=== PATIENT | male | born 1980 | race Caucasian/White ===

== ENCOUNTER 2017-03-05 18:08 | Emergency (ER) | payer SELFPAY ==
--- NOTE | 2017-03-05 19:12 | ER Document Report ---
ED Medical Screen (RME) - General TRAVEL OUTSIDE OF THE [place] IN LAST 30 DAYS: No <JUSTIN SCHAFFER - Last Filed: 03/05/17 19:09> <JANIA RICKETTS - Last Filed: 03/05/17 20:33> - General Chief Complaint: Shortness Of Breath Stated Complaint: SHORTNESS OF BREATH Time Seen by Provider: 03/05/17 19:02 Notes: Patient says he has been having difficulty with his breathing for about a month. He took some Mucinex cough medication and after couple weeks that problem cleared up. Then, it came back a couple of weeks ago. He had a cough and when he coughs it feels like phlegm breaks loose and then he feels like he is losing his breath. He has been producing yellow phlegm initially followed by just clear phlegm now. I had any fever. Has a history of asthma but does not feel he is having asthma attacks. Patient does not smoke. Patient says he has had some intermittent ankle swelling bilaterally, but it has preceded his current illness. Denies any leg pain or history of blood clots. 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 Has acid reflux. (JUSTIN SCHAFFER) - Related Data Allergies/Adverse Reactions: No Known Allergies Allergy (Verified 03/05/17 18:18) Past Medical History Renal/ Medical History: Denies: Hx Peritoneal Dialysis GI Medical History: Reports: Hx Gastroesophageal Reflux Disease Musculoskeltal Medical History: Reports Hx Musculoskeletal Trauma Traumatic Medical History: Reports: Hx Fractures Past Surgical History: Reports: Hx Orthopedic Surgery - Immunizations Immunizations up to date: Yes Hx Diphtheria, Pertussis, Tetanus Vaccination: Yes <JUSTIN SCHAFFER - Last Filed: 03/05/17 19:09> Course - Laboratory Result Diagrams: 03/05/17 19:30 03/05/17 19:30 <JANIA RICKETTS - Last Filed: 03/05/17 20:33> - Vital Signs Vital signs: Temp Pulse Resp BP Pulse Ox 97.6 F 95 14 153/95 H 96 03/05/17 18:18 03/05/17 18:18 03/05/17 18:18 03/05/17 18:18 03/05/17 18:18 - Laboratory Laboratory results interpreted by me: 03/05/17 19:30 WBC 10.8 H Doctor's Discharge <JUSTIN SCHAFFER - Last Filed: 03/05/17 19:09> <JANIA RICKETTS - Last Filed: 03/05/17 20:33> - Discharge Clinical Impression: Cough, Shortness of breath, Postnasal drip Condition: Stable Disposition: HOME, SELF-CARE Additional Instructions: No pneumonia is seen on x-ray. Examination is consistent with an upper respiratory source of your symptoms along with postnasal drip. Because of ongoing symptoms we are treating you with a course of azithromycin in addition to the prednisone for suspected bronchitis source. Also consider antiallergy such as Zyrtec or Erin [id number] for postnasal drip and your symptoms. Follow-up with primary care. Return to emergency department for concerning or worsening symptoms including rapid or labored breathing, worsening shortness of breath, spiking fever, chest pain, or any other concerning symptoms. Prescriptions: Azithromycin [Zithromax 250 mg Tablet] 250 mg PO ASDIR PRN #6 tablet PRN Reason: Prednisone [Deltasone 10 mg Tablet] 10 mg PO ASDIR PRN #21 tablet PRN Reason:
[2017-03-05 19:52] LABS: ABSOLUTE EOSINOPHILS # (AUTO) 0.2 10^3/uL (0.0-0.6); ABSOLUTE LYMPHOCYTES (AUTO) 3.5 10^3/uL (0.5-4.7); ABSOLUTE MONOCYTES (AUTO) 0.7 10^3/uL (0.1-1.4); ABSOLUTE NEUT (AUTO) 6.4 10^3/uL (1.7-8.2); BASOPHILS % (AUTO) 0.4 % (0-2); EOSINOPHILS % (AUTO) 2.2 % (0-6); HEMATOCRIT 41.4 % (37.9-51.0); HEMOGLOBIN 13.8 g/dL (13.5-17.0); MEAN CORPUSCULAR HEMOGLOBIN 30.2 pg (27.0-33.4); MEAN CORPUSCULAR HGB CONC 33.2 g/dL (32.0-36.0); MEAN CORPUSCULAR VOLUME 91 fl (80-97); RED BLOOD COUNT 4.56 10^6/uL (4.35-5.55); RED CELL DISTRIBUTION WIDTH 13.4 % (11.5-14.0); SEGMENTED NEUTROPHILS % (AUTO) 59.4 % (42-78); WHITE BLOOD COUNT 10.8 10^3/uL (4.0-10.5)
[2017-03-05 20:00] LABS: ALANINE AMINOTRANSFERASE 64 U/L (21-72); ALBUMIN 4.2 g/dL (3.5-5.0); ALKALINE PHOSPHATASE 66 U/L (38-126); ANION GAP 15 (5-19); ASPARTATE AMINO TRANSFERASE 30 U/L (17-59); BILIRUBIN,DIRECT 0.3 mg/dL (0.0-0.4); BILIRUBIN,TOTAL 0.4 mg/dL (0.2-1.3); BLOOD UREA NITROGEN 11 mg/dL (7-20); CALCIUM 9.8 mg/dL (8.4-10.2); CARBON DIOXIDE 25 mmol/L (22-30); CHLORIDE 103 mmol/L (98-107); CREATININE RESULT 0.82 mg/dL (0.52-1.25); GLUCOSE 92 mg/dL (75-110); POTASSIUM 4.6 mmol/L (3.6-5.0); SODIUM 142.5 mmol/L (137-145); TOTAL PROTEIN 7.2 g/dL (6.3-8.2)
--- NOTE | 2017-03-05 20:04 | RADIOLOGY REPORT (SQ) ---
EXAM DESCRIPTION: CHEST PA/LAT COMPLETED DATE/TIME: 03/05/2017 7:42 pm REASON FOR STUDY: Cough and feeling short of breath. COMPARISON: None. NUMBER OF VIEWS: Two view. TECHNIQUE: Frontal and lateral radiographic views of the chest acquired. LIMITATIONS: None. FINDINGS: LUNGS AND PLEURA: Low lung volumes. No opacities, masses or pneumothorax. No pleural eff usion. MEDIASTINUM AND HILAR STRUCTURES: No masses. No contour abnormalities. HEART AND VASCULAR STRUCTURES: Heart normal in size and contour. No evidence for failure. BONES: No acute findings. HARDWARE: None in the chest. OTHER: No other significant finding. IMPRESSION: LOW LUNG VOLUMES. NO SIGNIFICANT RADIOGRAPHIC FINDING IN THE CHEST. TECHNICAL DOCUMENTATION: JOB ID: [id number] [employer]- All Rights Reserved
[2017-03-05] MEDS ORDERED: PREDNISONE 20 MG TABLET PO ONE (20:29)
[2017-03-05 20:43] VITALS: BP 145/93
--- NOTE | 2017-03-06 05:51 | ER Document Report ---
ED General - General Chief Complaint: Shortness Of Breath Stated Complaint: SHORTNESS OF BREATH Time Seen by Provider: 03/05/17 19:02 Notes: Patient is a 36-year-old male who comes emergency department for chief complaint of difficulty breathing, symptoms started almost 1 month ago, he states that he then improved but then 2 weeks ago his symptoms returned. He states he has coughing episodes and today during the coughing episodes he felt more short of breath than usual. He denies any fever, he states he had yellow phlegm but now he is just coughing up clear phlegm. He does not smoke. He states he has a history of asthma in the past. He states that he has noticed his legs swelling on both sides, however this started before his cough and shortness of breath. He denies any history or family history of blood clots. He denies any recent surgery or long distance travel. 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 TRAVEL OUTSIDE OF THE [place] IN LAST 30 DAYS: No - Related Data Allergies/Adverse Reactions: No Known Allergies Allergy (Verified 03/05/17 18:18) Past Medical History - General Information source: Patient - Social History Smoking Status: Never Smoker Frequency of alcohol use: Occasional Drug Abuse: None Family History: Arthritis, CAD, DM, Hyperlipidemia, Hypertension, Malignancy, Thyroid Disfunction Patient has suicidal ideation: No Patient has homicidal ideation: No Pulmonary Medical History: Reports: Hx Asthma Renal/ Medical History: Denies: Hx Peritoneal Dialysis GI Medical History: Reports: Hx Gastroesophageal Reflux Disease Musculoskeltal Medical History: Reports Hx Musculoskeletal Trauma Traumatic Medical History: Reports: Hx Fractures Past Surgical History: Reports: Hx Orthopedic Surgery - Immunizations Immunizations up to date: Yes Hx Diphtheria, Pertussis, Tetanus Vaccination: Yes Review of Systems - Review of Systems Constitutional: No symptoms reported EENT: No symptoms reported Cardiovascular: See HPI Respiratory: See HPI Gastrointestinal: No symptoms reported Genitourinary: No symptoms reported Male Genitourinary: No symptoms reported Musculoskeletal: No symptoms reported Skin: No symptoms reported Hematologic/Lymphatic: No symptoms reported Neurological/Psychological: No symptoms reported Physical Exam - Vital signs Vitals: Temp Pulse Resp BP Pulse Ox 97.6 F 95 14 153/95 H 96 03/05/17 18:18 03/05/17 18:18 03/05/17 18:18 03/05/17 18:18 03/05/17 18:18 Interpretation: Normal - General General appearance: Appears well In distress: None - Patient does not appear to be in any distress - HEENT Head: Normocephalic, Atraumatic Eyes: Normal Conjunctiva: Normal Extraocular movements intact: Yes Eyelashes: Normal Pupils: PERRL Tympanic membrane: Normal Sinus: Normal Nasal: Normal Mouth/Lips: Normal Mucous membranes: Normal Pharynx: Erythema - There is mild erythema with what appears to be postnasal drip Neck: Normal - Respiratory Respiratory status: No respiratory distress. No: Respiratory distress, Tachypnea Chest status: Nontender. No: Tender Breath sounds: Nonproductive cough. No: Decreased air movement, Wheezing Chest palpation: Normal - Cardiovascular Rhythm: Regular. No: Tachycardia Heart sounds: Normal auscultation, S1 appreciated, S2 appreciated Murmur: No - Abdominal Inspection: Normal Distension: No distension Bowel sounds: Normal Tenderness: Nontender Organomegaly: No organomegaly - Back Back: Normal, Nontender - Extremities General upper extremity: Normal inspection, Nontender, Normal color, Normal ROM , Normal temperature General lower extremity: Normal inspection, Nontender, Normal color, Normal ROM , Normal temperature, Normal weight bearing. No: Rita's sign - Neurological Neuro grossly intact: Yes Cognition: Normal Orientation: AAOx4 Campbell Coma Scale Eye Opening: Spontaneous Howe Coma Scale Verbal: Oriented Campbell Coma Scale Motor: Obeys Commands Campbell Coma Scale Total: 15 Speech: Normal Motor strength normal: LUE, RUE, LLE, RLE Sensory: Normal - Psychological Associated symptoms: Normal affect, Normal mood - Skin Skin Temperature: Warm Skin Moisture: Dry Skin Color: Normal Course - Re-evaluation Re-evalutation: Laboratory workup is unremarkable, patient's physical exam shows evidence of postnasal drip and some irritated coughing but no other concerning abnormalities. No lower extremity swelling. Very low suspicion of PE based on no long distance travel, no smoking, no lower extremity swelling, no history of blood clot with patient for family members, and no surgery. Patient not currently reporting any shortness of breath. Because symptoms have been going on greater than 1 week I did agree to cover with antibiotic although discussed with patient that this is very likely bronchitis. Discussed follow-up with primary care, discussed return precautions, patient states understanding and agreement. - Vital Signs Vital signs: Temp Pulse Resp BP Pulse Ox 98.0 F 85 18 145/93 H 97 03/05/17 20:42 03/05/17 20:42 03/05/17 20:42 03/05/17 20:42 03/05/17 20:42 - Laboratory Result Diagrams: 03/05/17 19:30 03/05/17 19:30 Laboratory results interpreted by me: 03/05/17 19:30 WBC 10.8 H Discharge - Discharge Clinical Impression: Cough, Shortness of breath, Postnasal drip Condition: Stable Disposition: HOME, SELF-CARE Additional Instructions: No pneumonia is seen on x-ray. Examination is consistent with an upper respiratory source of your symptoms along with postnasal drip. Because of ongoing symptoms we are treating you with a course of azithromycin in addition to the prednisone for suspected bronchitis source. Also consider antiallergy such as Zyrtec or Erin [id number] for postnasal drip and your symptoms. Follow-up with primary care. Return to emergency department for concerning or worsening symptoms including rapid or labored breathing, worsening shortness of breath, spiking fever, chest pain, or any other concerning symptoms. Prescriptions: Azithromycin [Zithromax 250 mg Tablet] 250 mg PO ASDIR PRN #6 tablet PRN Reason: Prednisone [Deltasone 10 mg Tablet] 10 mg PO ASDIR PRN #21 tablet PRN Reason: Forms: Elevated Blood Pressure
== END 2017-03-05 21:20 | disposition home or self-care (01) ==
LOC: ER 18:08
DX: J45.909 Unspecified asthma, uncomplicated (principal); R09.82 Postnasal drip; R05 Cough; R06.02 Shortness of breath
CPT/HCPCS: 36415; 71020; 80053; 85025; 87070; 87205; 99284

== ENCOUNTER 2017-03-06 12:00 | Emergency (ER) | payer SELFPAY ==
--- NOTE | 2017-03-06 12:43 | ER Document Report ---
ED Respiratory Problem - General Chief Complaint: Shortness Of Breath Stated Complaint: DIFFICULTY BREATHING Time Seen by Provider: 03/06/17 12:15 Mode of Arrival: Ambulatory Information source: Patient TRAVEL OUTSIDE OF THE [place] IN LAST 30 DAYS: No - HPI Patient complains to provider of: Cough, Short of breath Onset: Other - 1 month Quality of pain: No pain Severity: Mild Short of Breath: Mild Chest pain/discomfort: Tightness, Worse with deep breaths Cough: Productive Sputum amount: Small Sputum color: Clear Sputum consistency: Mucoid Associated symptoms: Congestion, Cough, Short of breath Similar symptoms previously: Yes Recently seen / treated by doctor: Yes Notes: Patient is a 36-year-old male who presents back to the emergency room today for complaints of shortness of breath with chest tightness and a cough that has been persistent for 1 month, the cough is occasionally productive of clear phlegm, there is been no fever, no injury, he does report the back of his throat feels dry and he has had nasal congestion as well, he was seen in this emergency room yesterday for these complaints, was diagnosed with likely bronchitis and started on antibiotics which she has been unable to fill yet as he was discharged late yesterday evening and the pharmacies were closed, he reports feeling no change in symptoms since being seen last night, patient reports that at some point in time during his evaluation the possibility of a pulmonary embolus was discussed with him and now he is concerned that that could be a possibility for his symptoms, he is not a smoker 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 but does get out of the vehicle once he arrives at his destination, denies any leg pain or calf pain, no history of DVTs previously or PE - Related Data Allergies/Adverse Reactions: No Known Allergies Allergy (Verified 03/06/17 12:01) Past Medical History - General Information source: Patient - Social History Smoking Status: Never Smoker Family History: Arthritis, CAD, DM, Hyperlipidemia, Hypertension, Malignancy, Thyroid Disfunction Patient has suicidal ideation: No Patient has homicidal ideation: No Pulmonary Medical History: Reports: Hx Asthma Renal/ Medical History: Denies: Hx Peritoneal Dialysis GI Medical History: Reports: Hx Gastroesophageal Reflux Disease Musculoskeltal Medical History: Reports Hx Musculoskeletal Trauma Traumatic Medical History: Reports: Hx Fractures Past Surgical History: Reports: Hx Orthopedic Surgery - Immunizations Immunizations up to date: Yes Hx Diphtheria, Pertussis, Tetanus Vaccination: Yes Review of Systems - Review of Systems Constitutional: No symptoms reported EENT: No symptoms reported Cardiovascular: No symptoms reported Respiratory: See HPI Gastrointestinal: No symptoms reported Genitourinary: No symptoms reported Male Genitourinary: No symptoms reported Musculoskeletal: No symptoms reported Skin: No symptoms reported Hematologic/Lymphatic: No symptoms reported Neurological/Psychological: No symptoms reported -: Yes All other systems reviewed and negative Physical Exam - Vital signs Vitals: Temp Pulse Resp BP Pulse Ox 98.7 F 91 20 161/104 H 98 03/06/17 12:03/06/17 12:03/06/17 12:03/06/17 12:03/06/17 12:01 Interpretation: Normal - General General appearance: Appears well, Alert - HEENT Head: Normocephalic, Atraumatic Eyes: Normal Pupils: PERRL - Respiratory Respiratory status: No respiratory distress. No: Respiratory distress Chest status: Nontender Breath sounds: Normal. No: Decreased air movement Chest palpation: Normal - Cardiovascular Rhythm: Regular Heart sounds: Normal auscultation Murmur: No - Abdominal Inspection: Normal, Morbidly Obese Distension: No distension Bowel sounds: Normal Tenderness: Nontender Organomegaly: No organomegaly - Back Back: Normal, Nontender - Extremities General upper extremity: Normal inspection, Nontender, Normal color, Normal ROM , Normal temperature General lower extremity: Normal inspection, Nontender, Normal color, Normal ROM , Normal temperature, Normal weight bearing. No: Rita's sign Calf: Nontender - Neurological Neuro grossly intact: Yes Cognition: Normal Orientation: AAOx4 Campbell Coma Scale Eye Opening: Spontaneous Campbell Coma Scale Verbal: Oriented Dingess Coma Scale Motor: Obeys Commands Dingess Coma Scale Total: 15 Speech: Normal Motor strength normal: LUE, RUE, LLE, RLE Sensory: Normal - Psychological Associated symptoms: Normal affect, Normal mood - Skin Skin Temperature: Warm Skin Moisture: Dry Skin Color: Normal Course - Vital Signs Vital signs: Temp Pulse Resp BP Pulse Ox 98.7 F 91 20 161/104 H 98 03/06/17 12:01 03/06/17 12:03/06/17 12:03/06/17 12:03/06/17 12:01 - EKG Interpretation by Wy EKG shows normal: Sinus rhythm Rate: Normal Rhythm: NSR Discharge - Discharge Clinical Impression: Bronchitis Condition: Stable Disposition: HOME, SELF-CARE Instructions: Bronchitis ([facility]) Additional Instructions: Follow up with your primary care provider in one to 2 days. Return to the emergency room immediately if symptoms worsen or any additional concerns. Forms: Return to Work
[2017-03-06 14:05] VITALS: BP 157/94
--- NOTE | 2017-03-07 00:16 | EKG REPORT ---
SEVERITY:- NORMAL ECG - SINUS RHYTHM : Confirmed by: Lyndon Baker 07-Mar-2017 00:15:25
== END 2017-03-06 13:36 | disposition home or self-care (01) ==
LOC: ER 12:00
DX: J40 Bronchitis, not specified as acute or chronic (principal); R07.89 Other chest pain; R09.81 Nasal congestion; Z82.49 Family history of ischemic heart disease and other diseases of the circulatory system
CPT/HCPCS: 36415; 85379; 93005; 93010; 99285

== ENCOUNTER 2017-10-10 14:55 | Emergency (ER) | payer SELFPAY ==
--- NOTE | 2017-10-10 16:43 | ER Document Report ---
ED Medical Screen (RME) - General Chief Complaint: Abdominal Pain Stated Complaint: LOWER ABDOMINAL PAIN Time Seen by Provider: 10/10/17 16:40 Mode of Arrival: Ambulatory Information source: Patient Notes: 37 yo morbidly obese male with RLQ abd. pain that gets worse with bm's today, and after 2 sandwichs at lunch. Onset 0400. No hx stones. No fever. No groin or testiculat pain. TRAVEL OUTSIDE OF THE [place] IN LAST 30 DAYS: No - Related Data Allergies/Adverse Reactions: No Known Allergies Allergy (Verified 10/10/17 14:56) Past Medical History - Social History Chew tobacco use (# tins/day): No Frequency of alcohol use: Occasional Drug Abuse: None Pulmonary Medical History: Reports: Hx Asthma Renal/ Medical History: Denies: Hx Peritoneal Dialysis GI Medical History: Reports: Hx Gastroesophageal Reflux Disease Musculoskeltal Medical History: Reports Hx Musculoskeletal Trauma Traumatic Medical History: Reports: Hx Fractures Past Surgical History: Reports: Hx Orthopedic Surgery - Immunizations Immunizations up to date: Yes Hx Diphtheria, Pertussis, Tetanus Vaccination: Yes Physical Exam - Vital signs Vitals: Temp Pulse Resp BP Pulse Ox 98.5 F 101 H 18 185/97 H 97 10/10/17 15:05 10/10/17 15:05 10/10/17 15:05 10/10/17 15:05 10/10/17 15:05 Course - Vital Signs Vital signs: Temp Pulse Resp BP Pulse Ox 98.5 F 101 H 18 185/97 H 97 10/10/17 15:05 10/10/17 15:05 10/10/17 15:05 10/10/17 15:05 10/10/17 15:05
[2017-10-10 17:18] LABS: ABSOLUTE EOSINOPHILS # (AUTO) 0.2 10^3/uL (0.0-0.6); ABSOLUTE LYMPHOCYTES (AUTO) 3.2 10^3/uL (0.5-4.7); ABSOLUTE MONOCYTES (AUTO) 0.8 10^3/uL (0.1-1.4); ABSOLUTE NEUT (AUTO) 7.6 10^3/uL (1.7-8.2); BASOPHILS % (AUTO) 0.4 % (0-2); EOSINOPHILS % (AUTO) 1.3 % (0-6); HEMATOCRIT 42.4 % (37.9-51.0); HEMOGLOBIN 14.7 g/dL (13.5-17.0); LYMPHOCYTES % (AUTO) 27.4 % (13-45); MEAN CORPUSCULAR HEMOGLOBIN 30.7 pg (27.0-33.4); MEAN CORPUSCULAR HGB CONC 34.7 g/dL (32.0-36.0); MEAN CORPUSCULAR VOLUME 89 fl (80-97); MONOCYTES % (AUTO) 6.4 % (3-13); PLATELET COUNT 392 10^3/uL (150-450); RED BLOOD COUNT 4.79 10^6/uL (4.35-5.55); RED CELL DISTRIBUTION WIDTH 13.5 % (11.5-14.0); SEGMENTED NEUTROPHILS % (AUTO) 64.5 % (42-78); TOTAL CELLS COUNTED % (AUTO) 100 %; WHITE BLOOD COUNT 11.8 10^3/uL (4.0-10.5)
[2017-10-10 17:28] LABS: APPEARANCE,URINE CLEAR; BILIRUBIN,URINE NEGATIVE (NEGATIVE); COLOR,URINE YELLOW; GLUCOSE, URINE NEGATIVE (NEGATIVE); KETONES,URINE NEGATIVE (NEGATIVE); LEUKOCYTE ESTERASE,URINE NEGATIVE (NEGATIVE); NITRITE,URINE NEGATIVE (NEGATIVE); PROTEIN,URINE NEGATIVE (NEGATIVE); URINE SPECIFIC GRAVITY 1.025; UROBILINOGEN,URINE NEGATIVE mg/dL (<2.0)
[2017-10-10 17:42] LABS: ALANINE AMINOTRANSFERASE 70 U/L (21-72); ALBUMIN 4.8 g/dL (3.5-5.0); ALKALINE PHOSPHATASE 70 U/L (38-126); ANION GAP 13 (5-19); ASPARTATE AMINO TRANSFERASE 37 U/L (17-59); BILIRUBIN,DIRECT 0.3 mg/dL (0.0-0.4); BILIRUBIN,TOTAL 0.5 mg/dL (0.2-1.3); BLOOD UREA NITROGEN 14 mg/dL (7-20); CALCIUM 10.1 mg/dL (8.4-10.2); CARBON DIOXIDE 25 mmol/L (22-30); CHLORIDE 104 mmol/L (98-107); GLUCOSE 82 mg/dL (75-110); LIPASE 95.1 U/L (23-300); POTASSIUM 4.3 mmol/L (3.6-5.0); SODIUM 141.8 mmol/L (137-145); TOTAL PROTEIN 7.4 g/dL (6.3-8.2)
--- NOTE | 2017-10-10 19:06 | RADIOLOGY REPORT (SQ) ---
EXAM DESCRIPTION: CT ABD/PELVIS WITH IV ONLY COMPLETED DATE/TIME: 10/10/2017 6:43 pm REASON FOR STUDY: rlq abd pain COMPARISON: None. TECHNIQUE: CT scan of the abdomen and pelvis performed using helical scanning technique with dynamic intravenous contrast injection. No oral contrast. Images reviewed with lung, soft tissue, and bone windows. Reconstructed coronal and sagittal MPR images reviewed. Delayed images for evaluation of the urinary system also acquired. All images stored on PACS. All CT scanners at this facility use dose modulation, iterative reconstruction, and/or weight based d osing when appropriate to reduce radiation dose to as low as reasonably achievable (ALARA). [facility]: Dose Right [facility]: CareDose [facility]: Dose Right [facility]: Teradose 4D [facility]: [email or web address] CONTRAST TYPE AND DOSE: contrast/concentration: Isovue 370.00 mg/ml; Total Contrast Delivered: 100.0 ml; Total Saline Delivered: 45.1 ml RENAL FUNCTION: None required. The patient is less than 50 years old. RADIATION DOSE: CT Rad equipment meets quality standard of care and radiation dose reduction techniq ues were employed. CTDIvol: 30.0 mGy. DLP: 3723 mGy-cm.. LIMITATIONS: None. FINDINGS: LOWER CHEST: No significant findings. No nodules or infiltrates. LIVER: Normal size. No masses. No dilated ducts. There is fatty infiltration of the liver. SPLEEN: Normal size. No focal lesions. PANCREAS: No masses. No significant calcifications. No adjacent inflammation or peripancreatic fluid collections. Pancreatic duct not dilated. GALLBLADDER: No identified stones by CT criteria. No inflammatory changes to suggest cholecystitis. ADRENAL GLANDS: No significant masses or asymmetry. RIGHT KIDNEY AND URETER: No solid masses. No significant calcifications. No hydronephrosis or hyd roureter. LEFT KIDNEY AND URETER: No solid masses. No significant calcifications. No hydronephrosis or hydr oureter. AORTA AND VESSELS: No aneurysm. No dissection. Renal arteries, SMA, celiac without stenosis. RETROPERITONEUM: No retroperitoneal adenopathy, hemorrhage or masses. BOWEL AND PERITONEAL CAVITY: No masses or inflammatory changes. No free fluid or peritoneal masses. APPENDIX: Normal. PELVIS: No mass. No free fluid. Normal bladder. ABDOMINAL WALL: No masses. No hernias. BONES: No significant or acute findings. OTHER: No other significant finding. IMPRESSION: NO SIGNIFICANT OR ACUTE FINDING IN THE ABDOMEN OR PELVIS ON CT SCAN WITH IV CONTRAST. TECHNICAL DOCUMENTATION: JOB ID: [id number] Quality ID # [id number]: Final reports with documentation of one or more dose reduction techniques (e.g., Au tomated exposure control, adjustment of the mA and/or kV according to patient size, use of iterative reconstruction technique) 2010 [employer]- All Rights Reserved
[2017-10-10 19:10] VITALS: BP 151/54
--- NOTE | 2017-10-10 19:41 | ER Document Report ---
ED GI/ - General Chief Complaint: Abdominal Pain Stated Complaint: LOWER ABDOMINAL PAIN Time Seen by Provider: 10/10/17 16:40 Mode of Arrival: Ambulatory Notes: Patient is a 37-year-old male comes emergency department for chief complaint of lower abdominal pain mainly in his right side. He states that he is having an intermittent cramping feelings since this morning, he had occasional sharp stabbing pain in the area. He states he had pain and pressure in the area when he had a couple bowel movements earlier. He denies any current pain. Denies nausea vomiting, fever or chills, hematuria, flank pain, or trauma. Past medical history of obesity, GERD, orthopedic surgery. TRAVEL OUTSIDE OF THE [place] IN LAST 30 DAYS: No - Related Data Allergies/Adverse Reactions: No Known Allergies Allergy (Verified 10/10/17 14:56) Past Medical History - General Information source: Patient - Social History Smoking Status: Never Smoker Chew tobacco use (# tins/day): No Frequency of alcohol use: Occasional Drug Abuse: None Lives with: Family Family History: Arthritis, CAD, DM, Hyperlipidemia, Hypertension, Malignancy, Thyroid Disfunction Patient has suicidal ideation: No Patient has homicidal ideation: No Pulmonary Medical History: Reports: Hx Asthma Renal/ Medical History: Denies: Hx Peritoneal Dialysis GI Medical History: Reports: Hx Gastroesophageal Reflux Disease Musculoskeltal Medical History: Reports Hx Musculoskeletal Trauma Traumatic Medical History: Reports: Hx Fractures Past Surgical History: Reports: Hx Orthopedic Surgery - Immunizations Immunizations up to date: Yes Hx Diphtheria, Pertussis, Tetanus Vaccination: Yes Review of Systems - Review of Systems Constitutional: No symptoms reported EENT: No symptoms reported Cardiovascular: No symptoms reported Respiratory: No symptoms reported Gastrointestinal: See HPI Genitourinary: No symptoms reported Male Genitourinary: No symptoms reported Musculoskeletal: No symptoms reported Skin: No symptoms reported Hematologic/Lymphatic: No symptoms reported Neurological/Psychological: No symptoms reported Physical Exam - Vital signs Vitals: Temp Pulse Resp BP Pulse Ox 98.5 F 101 H 18 185/97 H 97 10/10/17 15:05 10/10/17 15:05 10/10/17 15:05 10/10/17 15:05 10/10/17 15:05 Interpretation: Normal - General General appearance: Appears well, Alert In distress: None - Patient alert, well-appearing, conversational - HEENT Head: Normocephalic, Atraumatic Eyes: Normal Pupils: PERRL - Respiratory Respiratory status: No respiratory distress Chest status: Nontender Breath sounds: Normal Chest palpation: Normal - Cardiovascular Rhythm: Regular Heart sounds: Normal auscultation Murmur: No - Abdominal Inspection: Normal Distension: No distension Bowel sounds: Normal Tenderness: Nontender - Completely nontender abdomen, soft, no rebound tenderness, no rigidity. No: Tender, McBurney's point, Guarding - Back Back: Normal, Nontender. No: Tender, CVA tenderness - Extremities General upper extremity: Normal inspection, Nontender, Normal color, Normal ROM , Normal temperature General lower extremity: Normal inspection, Nontender, Normal color, Normal ROM , Normal temperature, Normal weight bearing. No: Rita's sign - Neurological Neuro grossly intact: Yes Cognition: Normal Orientation: AAOx4 [place] Coma Scale Eye Opening: Spontaneous [place] Coma Scale Verbal: Oriented [place] Coma Scale Motor: Obeys Commands [place] Coma Scale Total: 15 Speech: Normal Motor strength normal: LUE, RUE, LLE, RLE Sensory: Normal - Psychological Associated symptoms: Normal affect, Normal mood - Skin Skin Temperature: Warm Skin Moisture: Dry Skin Color: Normal Course - Re-evaluation Re-evalutation: Patient is alert and well-appearing on my exam. He has a soft nontender abdomen. CBC shows minimal leukocytosis with no elevation of neutrophils or bandemia. Nonspecific. Chemistry unremarkable. Urinalysis unremarkable with no hematuria or infection. CAT scan had already been ordered and performed from triage, this was reviewed. Shows fatty infiltration of the liver, normal appendix, normal bowel, no acute abnormality. I feel this is consistent with patient's examination. Symptoms have been intermittent, no vomiting, no fever, patient currently asymptomatic and has a very unremarkable abdominal exam. I have very low suspicion of an acute abdominal surgical abnormality. Unsure of patient's exact etiology at this time. Discussed results including fatty liver. Patient will be discharged with strict return precautions, I discussed these, these were provided with his discharge instructions, patient states understanding and agreement. - Vital Signs Vital signs: Temp Pulse Resp BP Pulse Ox 98.0 F 89 19 151/54 H 94 10/10/17 19:09 10/10/17 19:09 10/10/17 19:09 10/10/17 19:09 10/10/17 19:09 - Laboratory Result Diagrams: 10/10/17 16:53 10/10/17 16:53 Laboratory results interpreted by me: 10/10/17 16:53 WBC 11.8 H Discharge - Discharge Clinical Impression: Right lower quadrant pain Condition: Stable Disposition: HOME, SELF-CARE Additional Instructions: Your examination, lab work, and CAT scan did not show any concerning abnormality at this time. Increase fluids, eat plenty of fiber, follow-up with primary care. Return to the ED if you worsen, see additional instructions below. Observation for Appendicitis At this time, the abdominal pain does not seem to be appendicitis. Our next "test" will be passage of time. If you have early appendicitis, signs will appear to help us make the diagnosis. Most of the time, the pain goes away. Unless the pain is gone, you should come back for a recheck. This is usually done in 8 to 12 hours. Be sure you understand your follow-up instructions. Come back immediately if: (1) the pain becomes much more severe and sharply increases with movement or coughing, (2) vomiting becomes frequent, (3) there is blood in the vomit, urine, or bowel movements, (4) there are shaking chills or fever, or (5) the abdomen becomes more distended or swollen.
== END 2017-10-10 20:11 | disposition home or self-care (01) ==
LOC: ER 14:55
DX: R10.31 Right lower quadrant pain (principal)
CPT/HCPCS: 36415; 74177; 80053; 81001; 83690; 85025; 99284

== ENCOUNTER 2017-12-06 20:48 | Emergency (ER) | payer SELFPAY ==
[2017-12-06] MEDS ORDERED: PREDNISONE 20 MG TABLET PO ONE (22:04)
--- NOTE | 2017-12-06 22:14 | ER Document Report ---
ED Skin Rash/Insect Bite/Abscs - General Chief Complaint: Skin Problem Stated Complaint: SKIN PROBLEM Time Seen by Provider: 12/06/17 21:06 Information source: Patient TRAVEL OUTSIDE OF THE [place] IN LAST 30 DAYS: No - HPI Patient complains to provider of: Skin rash/lesion Notes: Patient is here with complaints of rash. He states that he was pulling weeds and working in his garden on Monday and Monday started at some itching to his arms. Yesterday he noticed some rash to his arms. Today he noticed some rash under his eyes. No blurred or loss vision. No pain. No fever. No nausea, vomiting, diarrhea. Chest pain or shortness of breath. He denies any new soaps , detergents, lotions, medications. He has no other complaints. - Related Data Allergies/Adverse Reactions: No Known Allergies Allergy (Verified 10/10/17 14:56) Past Medical History - Social History Smoking Status: Never Smoker Chew tobacco use (# tins/day): No Frequency of alcohol use: None Drug Abuse: None Family History: Arthritis, CAD, DM, Hyperlipidemia, Hypertension, Malignancy, Thyroid Disfunction Patient has suicidal ideation: No Patient has homicidal ideation: No Pulmonary Medical History: Reports: Hx Asthma Renal/ Medical History: Denies: Hx Peritoneal Dialysis GI Medical History: Reports: Hx Gastroesophageal Reflux Disease Musculoskeltal Medical History: Reports Hx Musculoskeletal Trauma Traumatic Medical History: Reports: Hx Fractures Past Surgical History: Reports: Hx Orthopedic Surgery - Immunizations Immunizations up to date: Yes Hx Diphtheria, Pertussis, Tetanus Vaccination: Yes Review of Systems - Review of Systems -: Yes All other systems reviewed and negative Physical Exam - Vital signs Vitals: Temp Pulse Resp BP Pulse Ox 98.4 F 76 20 156/96 H 96 12/06/17 20:55 12/06/17 20:55 12/06/17 20:55 12/06/17 20:55 12/06/17 20:55 - Notes Notes: GENERAL: alert, cooperative, nontoxic, no distress. HEAD: normocephalic, atraumatic EYES: conjunctiva pink without discharge, mild redness and swelling to the lower lids. No tenderness. EARS: no external swelling, no external redness NOSE: atraumatic, no external swelling MOUTH/THROAT: mucous membranes moist and pink NECK: soft, supple, full range of motion, no meningismus. CHEST: no distress, lungs clear and equal throughout. No wheezing, rales, rhonchi. CARDIAC: regular rate and rhythm, no murmur, normal capillary refill, normal pulses. BACK: full range of motion, no CVA tenderness. EXTREMITIES: full range of motion of all extremities. No redness, no swelling. NEURO: alert and oriented 3, no focal deficits, full range of motion of all extremities. PYSCH: appropriate mood, affect. Patient is cooperative. SKIN: pink, warm, dry, nonspecific papular rash to the bilateral arms with vesicular linear rash to the bilateral arms. No surrounding erythema or tenderness. Mild erythema and swelling to the bilateral lower eyelids.. Course - Re-evaluation Re-evalutation: 12/06/17 22:11 Patient is nontoxic appearing with stable vitals. The patient was working in his garden on Monday developed itching Monday and rash Monday he now has a rash to his arms and under his eyelids. Rashes consistent with contact dermatitis. There is no signs of secondary infection. Patient is in no respiratory distress. Remainder of his exam exam unremarkable. He does not have diabetes. Due to the fact that is involving his eyes, I will place him on oral steroid taper. He was instructed to do [id number] antihistamines. Follow-up if not improving in the next 5-7 days, sooner for worsening symptoms, high fever, pain, drainage, any further concerns. The patient's emergency department workup and current diagnosis were explained to the patient and or family. Follow-up instructions were provided. Medications if prescribed were discussed. Instructions for when to return to the emergency department including specific worrisome symptoms were discussed with the patient and/or family. The patient is noted to have elevated blood pressure during today's emergency department visit. The patient was informed of this finding. The patient was instructed that this may be related to pre-hypertension and requires further evaluation with a primary care provider. The patient has no hypertensive symptoms at this time. - Vital Signs Vital signs: Temp Pulse Resp BP Pulse Ox 98.4 F 76 20 156/96 H 96 12/06/17 20:55 12/06/17 20:55 12/06/17 20:55 12/06/17 20:55 12/06/17 20:55 Discharge - Discharge Clinical Impression: Contact dermatitis Qualifiers: Contact dermatitis type: allergic Contact dermatitis trigger: non-food plants Qualified Code(s): L23.7 - Allergic contact dermatitis due to plants, except food Condition: Stable Disposition: HOME, SELF-CARE Instructions: Contact Dermatitis ([facility]) Additional Instructions: Take medications as prescribed. Take pzrc-spb-veivist antihistamine such as Claritin or Benadryl to help with itching. Keep rash clean and dry. Follow-up if not better in 5-7 days, sooner for worsening symptoms, high fever, redness, drainage, pain, difficulty breathing or swallowing, or for any further concerns. Your blood pressure was elevated during today's visit. Have this rechecked with your doctor. Prescriptions: Prednisone 5 mg PO ASDIR 18 Days tab.[id number].[email or web address] Forms: Elevated Blood Pressure, Smoking Cessation Education Referrals: [facility] [Provider Group] - Follow up as needed
[2017-12-06 22:21] VITALS: BP 139/89
== END 2017-12-06 22:05 | disposition home or self-care (01) ==
LOC: ER 20:48
DX: L23.7 Allergic contact dermatitis due to plants, except food (principal); R21 Rash and other nonspecific skin eruption; R03.0 Elevated blood-pressure reading, without diagnosis of hypertension
CPT/HCPCS: 99283; J7512

== ENCOUNTER 2017-12-12 16:16 | Emergency (ER) | payer SELFPAY ==
[2017-12-12 16:22] VITALS: BP 152/82
--- NOTE | 2017-12-12 17:40 | ER Document Report ---
ED Skin Rash/Insect Bite/Abscs - General Chief Complaint: Rash Stated Complaint: POSSIBLE RASH Time Seen by Provider: 12/12/17 17:19 Mode of Arrival: Ambulatory Information source: Patient TRAVEL OUTSIDE OF THE [place] IN LAST 30 DAYS: No - HPI Patient complains to provider of: Skin rash/lesion Notes: Patient is here with complaints of rash. He was seen here a few days ago with a rash to his arms and under his eyes and was placed on prednisone for possible contact dermatitis as he tells me he was cleaning out melissa in the garden just prior to the rash starting. He has been on a prednisone taper but states the rash seems to be getting worse. Rashes now spread to his hands his abdomen and up his arms. His eye swelling has improved. States the rash is very itchy. Seems to be spreading. No fevers. No nausea, vomiting, diarrhea. No difficulty breathing or swallowing. No chest pain or shortness of breath. No known sick contacts. No new soaps, detergents, lotions, medications. No other complaints. - Related Data Allergies/Adverse Reactions: No Known Allergies Allergy (Verified 12/12/17 16:17) Past Medical History - Social History Smoking Status: Never Smoker Chew tobacco use (# tins/day): No Frequency of alcohol use: Occasional Drug Abuse: None Family History: Arthritis, CAD, DM, Hyperlipidemia, Hypertension, Malignancy, Thyroid Disfunction Patient has suicidal ideation: No Patient has homicidal ideation: No Pulmonary Medical History: Reports: Hx Asthma Renal/ Medical History: Denies: Hx Peritoneal Dialysis GI Medical History: Reports: Hx Gastroesophageal Reflux Disease Musculoskeltal Medical History: Reports Hx Musculoskeletal Trauma Traumatic Medical History: Reports: Hx Fractures Past Surgical History: Reports: Hx Orthopedic Surgery - Immunizations Immunizations up to date: Yes Hx Diphtheria, Pertussis, Tetanus Vaccination: Yes Review of Systems - Review of Systems -: Yes All other systems reviewed and negative Physical Exam - Vital signs Vitals: Temp Pulse Resp BP Pulse Ox 97.5 F 77 18 152/82 H 96 12/12/17 16:20 12/12/17 16:20 12/12/17 16:20 12/12/17 16:20 12/12/17 16:20 - Notes Notes: GENERAL: alert, cooperative, nontoxic, no distress. HEAD: normocephalic, atraumatic EYES: conjunctiva pink without discharge, no external redness or swelling. EARS: no external swelling, no external redness NOSE: atraumatic, no external swelling MOUTH/THROAT: mucous membranes moist and pink NECK: soft, supple, full range of motion, no meningismus. CHEST: no distress, lungs clear and equal throughout. No wheezing, rales, rhonchi. CARDIAC: regular rate and rhythm, no murmur, normal capillary refill, normal pulses. BACK: full range of motion, no CVA tenderness. EXTREMITIES: full range of motion of all extremities. No redness, no swelling. NEURO: alert and oriented 3, no focal deficits, full range of motion of all extremities. PYSCH: appropriate mood, affect. Patient is cooperative. SKIN: pink, warm, dry, fine red papular rash to the forearms, the dorsum of the hands, between the fingers, the folds of the arms, folds of the abdomen. No surrounding cellulitis or redness. No tenderness. Course - Re-evaluation Re-evalutation: 12/12/17 17:37 Patient is nontoxic appearing with stable vitals. The patient is here with complaints of rash. He was seen here a few days ago for what was possible to be contact dermatitis and was placed on a steroid taper. He states that the rash seems to be getting worse. He is noted to have a rash to the forearms, dorsum of his hands, between his fingers, the flexor portions of his arms as well as his abdomen. Rashes consistent with possible scabies. Instructed that he continue his prednisone taper. I will discharge him home with Elimite. He is instructed to wash everything in hot water and vacuum all furniture and carpet. Continue taking Benadryl or Claritin as needed for itching. Follow-up if not better in 1 week, sooner for worsening symptoms, high fever, difficult to breathing or swallowing, or for any further concerns. The patient's emergency department workup and current diagnosis were explained to the patient and or family. Follow-up instructions were provided. Medications if prescribed were discussed. Instructions for when to return to the emergency department including specific worrisome symptoms were discussed with the patient and/or family. The patient is noted to have elevated blood pressure during today's emergency department visit. The patient was informed of this finding. The patient was instructed that this may be related to pre-hypertension and requires further evaluation with a primary care provider. The patient has no hypertensive symptoms at this time. - Vital Signs Vital signs: Temp Pulse Resp BP Pulse Ox 97.5 F 77 18 152/82 H 96 12/12/17 16:20 12/12/17 16:20 12/12/17 16:20 12/12/17 16:20 12/12/17 16:20 Discharge - Discharge Clinical Impression: Scabies Condition: Stable Disposition: HOME, SELF-CARE Instructions: Scabies ([facility]) Additional Instructions: His medication as prescribed. Finish a prednisone taper. Take Benadryl or Claritin as needed for itching. Wash everything in hot water. Vacuum all furniture and carpet. Follow-up if not better in 1 week, sooner for worsening symptoms, high fever, difficulty breathing or swallowing, or for any further concerns. Your blood pressure was elevated during today's visit. Have this rechecked with your doctor. Prescriptions: Permethrin [Elimite] 60 gm TP ONCE #120 cream.gm. Forms: Elevated Blood Pressure, Smoking Cessation Education Referrals: [facility] [Provider Group] - Follow up as needed
== END 2017-12-12 17:53 | disposition home or self-care (01) ==
LOC: ER 16:16
DX: B86 Scabies (principal); J45.909 Unspecified asthma, uncomplicated; R03.0 Elevated blood-pressure reading, without diagnosis of hypertension
CPT/HCPCS: 99282

== ENCOUNTER 2018-01-29 16:35 | Emergency (ER) | payer SELFPAY ==
[2018-01-29 16:50] VITALS: BP 173/88
[2018-01-29] MEDS ORDERED: CIPROFLOXACIN HCL/DEXAMETH OTIC DROP 7.5 ML AD ONE (17:35)
--- NOTE | 2018-01-29 17:38 | ER Document Report ---
ED ENT - General Chief Complaint: Ear Pain Stated Complaint: RIGHT EAR PAIN Time Seen by Provider: 01/29/18 17:04 Mode of Arrival: Ambulatory Information source: Patient TRAVEL OUTSIDE OF THE [place] IN LAST 30 DAYS: No - HPI Patient complains to provider of: Ear problem Onset: Last week Notes: Right ear pain for the last several days. No injury. No fever. No nasal congestion. No drainage. He does not use Q-tips. He denies any recent swimming. Denies any redness or swelling around the outside of the ear. No sore throat. No difficulty breathing or swallowing. No nausea, vomiting, diarrhea. No dizziness. No neck pain. No other complaints at this time. Pain is worse with touching the ear, better with ibuprofen. He does complain of some decreased hearing in this ear. - Related Data Allergies/Adverse Reactions: No Known Allergies Allergy (Verified 01/29/18 16:42) Past Medical History - Social History Smoking Status: Never Smoker Family History: Arthritis, CAD, DM, Hyperlipidemia, Hypertension, Malignancy, Thyroid Disfunction Patient has suicidal ideation: No Patient has homicidal ideation: No Pulmonary Medical History: Reports: Hx Asthma Renal/ Medical History: Denies: Hx Peritoneal Dialysis GI Medical History: Reports: Hx Gastroesophageal Reflux Disease Musculoskeltal Medical History: Reports Hx Musculoskeletal Trauma Traumatic Medical History: Reports: Hx Fractures Past Surgical History: Reports: Hx Orthopedic Surgery - Immunizations Immunizations up to date: Yes Hx Diphtheria, Pertussis, Tetanus Vaccination: Yes Review of Systems - Review of Systems -: Yes All other systems reviewed and negative Physical Exam - Vital signs Vitals: Temp Pulse Resp BP Pulse Ox 99.1 F 84 18 173/88 H 97 01/29/18 16:49 01/29/18 16:49 01/29/18 16:49 01/29/18 16:49 01/29/18 16:49 - Notes Notes: GENERAL: alert, cooperative, nontoxic, no distress. HEAD: normocephalic, atraumatic EYES: conjunctiva pink without discharge, no external redness or swelling. EARS: no external swelling, no external redness, no mastoid redness, swelling, tenderness. Left canal normal. Right ear canal with swelling and redness. No drainage. Tenderness with movement of the tragus as well as the auricle. TMs pearly covarrubias, no redness, no bulging, normal landmarks, no perforation. NOSE: atraumatic, no external swelling. clear rhinorrhea noted. MOUTH/THROAT: mucous membranes moist and pink, posterior pharynx without erythema, swelling, exudate. No trismus or drooling. NECK: soft, supple, full range of motion, no meningismus. CHEST: no distress, lungs clear and equal throughout. No wheezing, rales, rhonchi. CARDIAC: regular rate and rhythm, no murmur, normal capillary refill, normal pulses. No peripheral edema noted. BACK: full range of motion, no CVA tenderness. EXTREMITIES: full range of motion of all extremities. No redness, no swelling. NEURO: alert and oriented A&O3, no focal deficits, full range of motion of all extremities. PYSCH: appropriate mood, affect. Patient is cooperative. SKIN: pink, warm, dry, no rash. Course - Re-evaluation Re-evalutation: 01/29/18 17:42 Patient is nontoxic appearing with stable vitals. Here with complaints of right ear pain. On exam he has a right otitis externa. No perforation. No otitis media. No sign of mastoiditis. The patient will be discharged home with Ciprodex eardrops. He declined needing any prescription for pain medication, he states that he will take Tylenol Motrin as needed for pain. Follow-up if not improving in the next 2 days, sooner for worsening pain, fever , redness or swelling around the outside of the ear, or for any further concerns. The patient is noted to have elevated blood pressure during today's emergency department visit. The patient was informed of this finding. The patient was instructed that this may be related to pre-hypertension and requires further evaluation with a primary care provider. The patient has no hypertensive symptoms at this time. The patient's emergency department workup and current diagnosis were explained to the patient and or family. Follow-up instructions were provided. Medications if prescribed were discussed. Instructions for when to return to the emergency department including specific worrisome symptoms were discussed with the patient and/or family. - Vital Signs Vital signs: Temp Pulse Resp BP Pulse Ox 99.1 F 84 18 173/88 H 97 01/29/18 16:49 01/29/18 16:49 01/29/18 16:49 01/29/18 16:49 01/29/18 16:49 Discharge - Discharge Clinical Impression: Otitis externa Qualifiers: Otitis externa type: unspecified type Chronicity: acute Laterality: right Qualified Code(s): H60.501 - Unspecified acute noninfective otitis externa, right ear Condition: Stable Disposition: HOME, SELF-CARE Instructions: Use of Ear Drops ([facility]), Otitis Externa ([facility]), Family Physicians / Practices Additional Instructions: Take medications as prescribed. Take 600 mg of ibuprofen every 6 hours and 1000 mg of Tylenol every 6 hours as needed for pain. Follow-up if not improving in the next 2 days, sooner for increasing pain, fever, redness, swelling, drainage, persistent vomiting, redness or swelling around the outside of the ear, or for any further concerns. The patient is noted to have elevated blood pressure during today's emergency department visit. The patient was informed of this finding. The patient was instructed that this may be related to pre-hypertension and requires further evaluation with a primary care provider. The patient has no hypertensive symptoms at this time. The patient's emergency department workup and current diagnosis were explained to the patient and or family. Follow-up instructions were provided. Medications if prescribed were discussed. Instructions for when to return to the emergency department including specific worrisome symptoms were discussed with the patient and/or family. Prescriptions: Ciprofloxacin HCl/Dexameth [Ciprodex Otic Suspension 7.5 ml Bottle] 4 drop OT BID #1 bottle Forms: Elevated Blood Pressure, Smoking Cessation Education Referrals: [facility] [Provider Group] - Follow up as needed
== END 2018-01-29 17:46 | disposition home or self-care (01) ==
LOC: ER 16:35
DX: H60.501 Unspecified acute noninfective otitis externa, right ear (principal); H92.01 Otalgia, right ear; J45.909 Unspecified asthma, uncomplicated; R03.0 Elevated blood-pressure reading, without diagnosis of hypertension
CPT/HCPCS: 99282; J3490

== ENCOUNTER 2018-02-19 09:09 | Emergency (ER) | payer SELFPAY ==
[2018-02-19 09:20] VITALS: BP 168/94
--- NOTE | 2018-02-19 09:25 | ER Document Report ---
HPI - HPI Patient complains to provider of: Left sinus pain Onset: Other Onset/Duration: Gradual - 5 days Pain Level: 4 Context: 37-year-old obese non-smoker complaining of left nasal congestion and frontal and maxillary sinus pain. Some postnasal drip. No cough. No fever or chills. No history of deviated septum or chronic sinus infection. Usually has some elevated blood pressure but does not take any blood pressure medication he does not have a primary care doctor because he does not have insurance. Past Medical History - General Information source: Patient - Social History Smoking Status: Never Smoker Frequency of alcohol use: None Drug Abuse: None Lives with: Spouse/Significant other Family History: Arthritis, CAD, DM, Hyperlipidemia, Hypertension, Malignancy, Thyroid Disfunction Pulmonary Medical History: Reports: Hx Asthma Renal/ Medical History: Denies: Hx Peritoneal Dialysis GI Medical History: Reports: Hx Gastroesophageal Reflux Disease Musculoskeltal Medical History: Reports Hx Musculoskeletal Trauma Traumatic Medical History: Reports: Hx Fractures Past Surgical History: Reports: Hx Orthopedic Surgery - Immunizations Immunizations up to date: Yes Hx Diphtheria, Pertussis, Tetanus Vaccination: Yes Vertical Provider Document - CONSTITUTIONAL Agree With Documented VS: Yes Exam Limitations: No Limitations General Appearance: No Apparent Distress - INFECTION CONTROL TRAVEL OUTSIDE OF THE [place] IN LAST 30 DAYS: No - HEENT HEENT: Atraumatic, Normocephalic, Pharyngeal Erythema - Minimal. negative: Conjuctival Injection Notes: Boggy left naris with tenderness left frontal and maxillary sinus - NECK Neck: Supple. negative: Lymphadenopathy-Left, Lymphadenopathy-Right - RESPIRATORY Respiratory: Breath Sounds Normal, No Respiratory Distress - CARDIOVASCULAR Cardiovascular: Regular Rate, Regular Rhythm Course - Re-evaluation Re-evalutation: 02/19/18 09:37 I had a long conversation about what the blood pressure can do to his body and ways to decrease calorie intake per day to lose weight. Referred him to family practice [facility]. - Vital Signs Vital signs: Temp Pulse Resp BP Pulse Ox 99.5 F 91 14 168/94 H 96 02/19/18 09:17 02/19/18 09:17 02/19/18 09:17 02/19/18 09:17 02/19/18 09:17 Discharge - Discharge Clinical Impression: Sinusitis Qualifiers: Sinusitis location: unspecified location Chronicity: acute Recurrence: non- recurrent Qualified Code(s): J01.90 - Acute sinusitis, unspecified Condition: Good Disposition: HOME, SELF-CARE Instructions: Augmentin ([facility]), Sinusitis ([facility]), High Blood Pressure ([facility]), [facility], Family Physicians / Practices Additional Instructions: Continue saline nasal spray Stop drinking sweet tea and limit the quantity of servings of food See [facility] or family practice doctor for blood pressure recheck and possible medication Warm compress to sinuses Augmentin for 10 days Return to the emergency room for worsening symptoms Prescriptions: Amoxicillin/Potassium Clav [Augmentin 875-125 Tablet] 1 each PO BID #20 tablet
== END 2018-02-19 09:44 | disposition home or self-care (01) ==
LOC: ER 09:09
DX: J01.90 Acute sinusitis, unspecified (principal); R51 Headache; R09.81 Nasal congestion; R09.82 Postnasal drip; R03.0 Elevated blood-pressure reading, without diagnosis of hypertension; J45.909 Unspecified asthma, uncomplicated
CPT/HCPCS: 99283

== ENCOUNTER 2018-03-31 08:30 | Emergency (ER) | payer SELFPAY ==
[2018-03-31 08:40] VITALS: BP 156/94
--- NOTE | 2018-03-31 09:00 | ER Document Report ---
HPI - HPI Patient complains to provider of: left ear pain Onset: Last week Onset/Duration: Persistent, Worse Pain Level: 3 Context: 37 yo male c/o pain left ear. Itches at times. no recent URI. Exacerbated by: Denies Relieved by: Denies Similar symptoms previously: No Recently seen / treated by doctor: No - ROS ROS below otherwise negative: Yes Systems Reviewed and Negative: Yes All other systems reviewed and negative - CONSTITUTIONAL Constitutional: DENIES: Fever, Chills - EENT EENT: REPORTS: Ear Pain - LEFT Past Medical History - General Information source: Patient - Social History Smoking Status: Never Smoker Chew tobacco use (# tins/day): No Frequency of alcohol use: None Drug Abuse: None Lives with: Spouse/Significant other Family History: Arthritis, CAD, DM, Hyperlipidemia, Hypertension, Malignancy, Thyroid Disfunction Patient has suicidal ideation: No Patient has homicidal ideation: No Pulmonary Medical History: Reports: Hx Asthma Renal/ Medical History: Denies: Hx Peritoneal Dialysis GI Medical History: Reports: Hx Gastroesophageal Reflux Disease Musculoskeltal Medical History: Reports Hx Musculoskeletal Trauma Traumatic Medical History: Reports: Hx Fractures Past Surgical History: Reports: Hx Orthopedic Surgery - LEFT COLLARBONE - Immunizations Immunizations up to date: Yes Hx Diphtheria, Pertussis, Tetanus Vaccination: Yes Vertical Provider Document - CONSTITUTIONAL Agree With Documented VS: Yes Exam Limitations: No Limitations General Appearance: No Apparent Distress - INFECTION CONTROL TRAVEL OUTSIDE OF THE [place] IN LAST 30 DAYS: No - HEENT HEENT: negative: Tympanic Membrane Red Notes: mld red tender left ear canal, no swelling - NECK Neck: Supple. negative: Lymphadenopathy-Left, Lymphadenopathy-Right - RESPIRATORY Respiratory: Breath Sounds Normal, No Respiratory Distress - CARDIOVASCULAR Cardiovascular: Regular Rate, Regular Rhythm - NEURO Level of Consciousness: Alert - DERM Integumentary: No Rash Course - Vital Signs Vital signs: Temp Pulse Resp BP Pulse Ox 98.7 F 79 18 156/94 H 97 03/31/18 08:38 03/31/18 08:38 03/31/18 08:38 03/31/18 08:38 03/31/18 08:38 Discharge - Discharge Clinical Impression: Mild left otitis externa Condition: Good Disposition: HOME, SELF-CARE Instructions: Use of Ear Drops ([facility]), Otitis Externa ([facility]) Additional Instructions: ear drops 4 times a day Return to the emergency room if symptoms worsen Prescriptions: Gentamicin Sulfate 2 drp QID #5 ml
== END 2018-03-31 09:35 | disposition home or self-care (01) ==
LOC: ER 08:30
DX: H60.92 Unspecified otitis externa, left ear (principal)
CPT/HCPCS: 99282

== ENCOUNTER 2019-05-20 09:01 | Emergency (ER) | payer SELFPAY ==
[2019-05-20 09:06] VITALS: BP 181/88
--- NOTE | 2019-05-20 09:26 | ER Document Report ---
HPI - HPI Patient complains to provider of: Ear abscess Time Seen by Provider: 05/20/19 09:11 Onset: Other - 3Days Quality of pain: Achy Pain Level: 3 Context: This 38-year-old male presents emergency department with complaints of left ear possible abscess. Reports he noticed a sheehan approximately 3 days ago. His girlfriend squeezed it last night got a lot of white stringy discharge out of the area. Reports the area still is a little tender with touch or when he smiles. Denies fever vomiting diarrhea. Denies history of MRSA. 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 Family History: Arthritis, CAD, DM, Hyperlipidemia, Hypertension, Malignancy, Thyroid Disfunction Pulmonary Medical History: Reports: Hx Asthma Renal/ Medical History: Denies: Hx Peritoneal Dialysis GI Medical History: Reports: Hx Gastroesophageal Reflux Disease Musculoskeletal Medical History: Reports Hx Musculoskeletal Trauma Traumatic Medical History: Reports: Hx Fractures Past Surgical History: Reports: Hx Orthopedic Surgery - LEFT COLLARBONE - Immunizations Immunizations up to date: Yes Hx Diphtheria, Pertussis, Tetanus Vaccination: Yes Vertical Provider Document - CONSTITUTIONAL Agree With Documented VS: Yes Exam Limitations: No Limitations General Appearance: WD/WN, No Apparent Distress - INFECTION CONTROL TRAVEL OUTSIDE OF THE [place] IN LAST 30 DAYS: No - HEENT HEENT: Atraumatic, Normocephalic. negative: Conjuctival Injection, Tympanic Membrane Red - small area of ecchymosis on helicis ayan/ashely cynba area, no erythema no warmth no swelling no pustule no signs of an abscess, Tympanic Membrane Bulging - NECK Neck: Normal Inspection, Supple. negative: Lymphadenopathy-Left, Lymphadenopathy-Right - RESPIRATORY Respiratory: Breath Sounds Normal, No Respiratory Distress - CARDIOVASCULAR Cardiovascular: Regular Rate - MUSCULOSKELETAL/EXTREMETIES Musculoskeletal/Extremeties: MAEW, FROM - NEURO Level of Consciousness: Awake, Alert, Appropriate Motor/Sensory: No Motor Deficit - DERM Integumentary: Warm, Dry Course - Re-evaluation Re-evalutation: 05/20/19 09:27 38-year-old male presents emergency department with possible abscess in his left ear. Denies history of abscesses. Denies MRSA. No other complaints. Site looks benign no signs of abdomen is little ecchymosis where area has been squeezed but no erythema no warmth no swelling no pustule. Patient was instructed on signs and symptoms of abscess. instructed to monitor area and return for abscess. Verbalized understanding to all information Dictation of this chart was performed using voice recognition software; therefore, there may be some unintended grammatical errors. - Vital Signs Vital signs: Temp Pulse Resp BP Pulse Ox 98.3 F 73 16 181/88 H 96 05/20/19 09:05 05/20/19 09:05 05/20/19 09:05 05/20/19 09:05 05/20/19 09:05 Discharge - Discharge Clinical Impression: Irritation of left ear Condition: Stable Disposition: HOME, SELF-CARE Additional Instructions: *You have been evaluated for ear irritation, possible abscess *Monitor your ear for signs of an abscess such as redness swelling increased pain warmth pustule *Tylenol or Motrin as indicated for pain *Follow up with a primary care provider in 1 week for recheck or return to the emergency department as indicated *Return to ED for worsening condition, changes, needs Monitor your blood pressure. Your blood pressure was elevated today. This may be because you were anxious, in pain or because you need medication. It is important to follow up with your primary care provider for full evaluation. Forms: Elevated Blood Pressure
== END 2019-05-20 09:25 | disposition home or self-care (01) ==
LOC: ER 09:01
DX: H93.8X2 Other specified disorders of left ear (principal); J45.909 Unspecified asthma, uncomplicated
CPT/HCPCS: 99282

== ENCOUNTER 2019-10-02 15:45 | Emergency (ER) | payer SELFPAY ==
[2019-10-02] MEDS ORDERED: ASPIRIN 81 MG TABLET, CHEWABLE PO ONE (17:22)
--- NOTE | 2019-10-02 17:25 | ER Document Report ---
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 He reports feels uncomfortable. Denies nausea fever vomiting diarrhea. Denies pain radiating down his arm or up his neck. Reports his father of cardiac disease but he was in his 60s. [employer] TRAVEL OUTSIDE OF THE [place] IN LAST 30 DAYS: No - Related Data Allergies/Adverse Reactions: No Known Allergies Allergy (Verified 10/02/19 17:14) Home Medications: prilosec, baby aspirin, multivitamin Past Medical History - Social History Chew tobacco use (# tins/day): No Frequency of alcohol use: None Drug Abuse: None Pulmonary Medical History: Reports: Hx Asthma Renal/ Medical History: Denies: Hx Peritoneal Dialysis GI Medical History: Reports: Hx Gastroesophageal Reflux Disease Musculoskeltal Medical History: Reports Hx Musculoskeletal Trauma Traumatic Medical History: Reports: Hx Fractures Past Surgical History: Reports: Hx Orthopedic Surgery - LEFT COLLARBONE - Immunizations Immunizations up to date: Yes Hx Diphtheria, Pertussis, Tetanus Vaccination: Yes Physical Exam - Vital signs Vitals: Temp Pulse Resp BP Pulse Ox 98.2 F 85 16 179/112 H 98 10/02/19 16:08 10/02/19 16:08 10/02/19 16:08 10/02/19 16:08 10/02/19 16:08 Course - Vital Signs Vital signs: Temp Pulse Resp BP Pulse Ox 98.2 F 85 16 179/112 H 98 10/02/19 16:08 10/02/19 16:08 10/02/19 16:08 10/02/19 16:08 10/02/19 16:08
--- NOTE | 2019-10-02 17:54 | RADIOLOGY REPORT (SQ) ---
EXAM DESCRIPTION: CHEST 2 VIEWS COMPLETED DATE/TIME: 10/02/2019 5:43 pm REASON FOR STUDY: cp COMPARISON: 03/05/2017 EXAM PARAMETERS: NUMBER OF VIEWS: two views TECHNIQUE: Digital Frontal and Lateral radiographic views of the chest acquired. RADIATION DOSE: NA LIMITATIONS: none FINDINGS: LUNGS AND PLEURA: No opacities, masses or pneumothorax. No pleural effusion. MEDIASTINUM AND HILAR STRUCTURES: No masses or contour abnormalities. HEART AND VASCULAR STRUCTURES: Heart normal size. No evidence for failure. BONES: No acute findings. HARDWARE: None in the chest. OTHER: No other significant finding. IMPRESSION: NO ACUTE RADIOGRAPHIC FINDING IN THE CHEST. TECHNICAL DOCUMENTATION: JOB ID: [id number] [employer]- All Rights Reserved Reading location - IP/workstation name: [email or web address]
[2019-10-02 18:28] LABS: ABSOLUTE EOSINOPHILS # (AUTO) 0.1 10^3/uL (0.0-0.6); ABSOLUTE LYMPHOCYTES (AUTO) 2.6 10^3/uL (0.5-4.7); ABSOLUTE MONOCYTES (AUTO) 0.5 10^3/uL (0.1-1.4); ABSOLUTE NEUT (AUTO) 5.7 10^3/uL (1.7-8.2); BASOPHILS % (AUTO) 0.4 % (0-2); EOSINOPHILS % (AUTO) 0.8 % (0-6); HEMATOCRIT 42.6 % (37.9-51.0); HEMOGLOBIN 14.8 g/dL (13.5-17.0); LYMPHOCYTES % (AUTO) 29.3 % (13-45); MEAN CORPUSCULAR HEMOGLOBIN 30.9 pg (27.0-33.4); MEAN CORPUSCULAR HGB CONC 34.8 g/dL (32.0-36.0); MEAN CORPUSCULAR VOLUME 89 fl (80-97); MONOCYTES % (AUTO) 6.1 % (3-13); PLATELET COUNT 332 10^3/uL (150-450); RED BLOOD COUNT 4.79 10^6/uL (4.35-5.55); RED CELL DISTRIBUTION WIDTH 13.1 % (11.5-14.0); SEGMENTED NEUTROPHILS % (AUTO) 63.4 % (42-78); TOTAL CELLS COUNTED % (AUTO) 100 %
[2019-10-02 18:43] LABS: ALBUMIN 4.6 g/dL (3.5-5.0); ALKALINE PHOSPHATASE 75 U/L (38-126); ANION GAP 11 (5-19); ASPARTATE AMINO TRANSFERASE 44 U/L (17-59); BILIRUBIN,DIRECT 0.2 mg/dL (0.0-0.4); BILIRUBIN,TOTAL 0.8 mg/dL (0.2-1.3); BLOOD UREA NITROGEN 11 mg/dL (7-20); CALCIUM 9.9 mg/dL (8.4-10.2); CARBON DIOXIDE 26 mmol/L (22-30); CHLORIDE 102 mmol/L (98-107); GLUCOSE 85 mg/dL (75-110); TOTAL PROTEIN 7.7 g/dL (6.3-8.2)
--- NOTE | 2019-10-02 23:38 | ER Document Report ---
ED General - General Chief Complaint: Chest Pain Stated Complaint: CHEST PAIN Time Seen by Provider: 10/02/19 17:19 Mode of Arrival: Ambulatory TRAVEL OUTSIDE OF THE [place] IN LAST 30 DAYS: No - HPI Onset: Yesterday Onset/Duration: Gradual Severity: Moderate Pain Level: 1 Context: 39 year old male arrives with left sided chest pain almost like electricity that lasts seconds in left sternal border. No fever or chills. No recent illness. No rash. He denies associated symptoms - no sob or sweating or nausea or vomiting. - Related Data Allergies/Adverse Reactions: No Known Allergies Allergy (Verified 10/02/19 17:14) Home Medications: prilosec, baby aspirin, multivitamin Past Medical History - General Information source: Patient - Social History Smoking Status: Never Smoker Chew tobacco use (# tins/day): No Frequency of alcohol use: None Drug Abuse: None Family History: Arthritis, CAD, DM, Hyperlipidemia, Hypertension, Malignancy, Thyroid Disfunction Patient has suicidal ideation: No Patient has homicidal ideation: No Pulmonary Medical History: Reports: Hx Asthma Renal/ Medical History: Denies: Hx Peritoneal Dialysis GI Medical History: Reports: Hx Gastroesophageal Reflux Disease Musculoskeletal Medical History: Reports Hx Musculoskeletal Trauma Traumatic Medical History: Reports: Hx Fractures Past Surgical History: Reports: Hx Orthopedic Surgery - LEFT COLLARBONE - Immunizations Immunizations up to date: Yes Hx Diphtheria, Pertussis, Tetanus Vaccination: Yes Review of Systems - Review of Systems Constitutional: No symptoms reported EENT: No symptoms reported Cardiovascular: No symptoms reported Respiratory: No symptoms reported Gastrointestinal: No symptoms reported Genitourinary: No symptoms reported Male Genitourinary: No symptoms reported Musculoskeletal: No symptoms reported Skin: No symptoms reported Hematologic/Lymphatic: No symptoms reported Neurological/Psychological: No symptoms reported Physical Exam - Vital signs Vitals: Temp Pulse Resp BP Pulse Ox 98.2 F 85 16 179/112 H 98 10/02/19 16:08 10/02/19 16:08 10/02/19 16:08 10/02/19 16:08 10/02/19 16:08 Interpretation: Normal - General General appearance: Appears well, Alert - HEENT Head: Normocephalic, Atraumatic Eyes: Normal Pupils: PERRL - Respiratory Respiratory status: No respiratory distress Chest status: Nontender Breath sounds: Normal Chest palpation: Normal - Cardiovascular Rhythm: Regular Heart sounds: Normal auscultation Murmur: No - Abdominal Inspection: Normal Distension: No distension Bowel sounds: Normal Tenderness: Nontender Organomegaly: No organomegaly - Back Back: Normal, Nontender - Extremities General upper extremity: Normal inspection, Nontender, Normal color, Normal ROM, Normal temperature General lower extremity: Normal inspection, Nontender, Normal color, Normal ROM, Normal temperature, Normal weight bearing. No: Rita's sign - Neurological Neuro grossly intact: Yes Cognition: Normal Orientation: AAOx4 [place] Coma Scale Eye Opening: Spontaneous [place] Coma Scale Verbal: Oriented [place] Coma Scale Motor: Obeys Commands [place] Coma Scale Total: 15 Speech: Normal Motor strength normal: LUE, RUE, LLE, RLE Sensory: Normal - Psychological Associated symptoms: Normal affect, Normal mood - Skin Skin Temperature: Warm Skin Moisture: Dry Skin Color: Normal Course - Re-evaluation Re-evalutation: 10/02/19 23:38 MDM 39 year old male with fleeting short duration chest pain at home. Lasted seconds and occurred at 3 am today. With several recurences but no pain here now. I feel no second of enzymes is needed as the ekg and other ancillary studies are very reassuring. - Vital Signs Vital signs: Temp Pulse Resp BP Pulse Ox 97.9 F 68 41 H 150/91 H 99 10/02/19 23:33 10/02/19 22:47 10/02/19 23:15 10/02/19 23:15 10/02/19 23:15 - Laboratory Result Diagrams: 10/02/19 18:11 10/02/19 18:11 - Diagnostic Test Radiology reviewed: Reports reviewed - EKG Interpretation by Me EKG shows normal: Sinus rhythm Rate: Normal Rhythm: NSR - NSR NL [place] [address] elevaiton or depression my interpretation. Discharge - Discharge Clinical Impression: Elevated blood pressure reading Condition: Good Disposition: HOME, SELF-CARE Instructions: Chest Pain of Unclear Cause ([facility]), High Blood Pressure ([facility]) Additional Instructions: Your blood pressure was elevated here and should be monitored. Please keep a log of this. See your doctor in follow up and return here for any chest pain or shortness of breath or other concerns. Forms: Return to School
[2019-10-02 23:51] VITALS: BP 161/90
--- NOTE | 2019-10-03 09:30 | EKG REPORT ---
SEVERITY:- NORMAL ECG - SINUS RHYTHM : Confirmed by: Lyndon Baker 03-Oct-2019 09:29:54
== END 2019-10-02 23:51 | disposition home or self-care (01) ==
LOC: ER 15:45
DX: R03.0 Elevated blood-pressure reading, without diagnosis of hypertension (principal); R07.9 Chest pain, unspecified; J45.909 Unspecified asthma, uncomplicated
CPT/HCPCS: 36415; 71046; 80053; 84484; 85025; 93005; 93010; 99285